=== PATIENT | male | born 1975 | race Caucasian/White ===

== ENCOUNTER 2021-08-24 01:08 | Emergency (ER) | payer BC ==
[~2021-08-24] VITALS: Ht 172.7 cm; Wt 99.8 kg
[2021-08-24 01:22] VITALS: BP 127/64
[2021-08-24] MEDS ORDERED: SILVER NITRATE APPLICATOR 1 EA BOX ONE (01:33)
--- NOTE | 2021-08-24 01:40 | NUR ---
DR. DELAROSA AT PT'S BEDSIDE FOR WOUNDCARE TO UPPER LIP Addendum: 08/24/21 at 0142 by ROXANA to apply silver nitrate
== END 2021-08-24 01:45 | disposition home or self-care (01) ==
LOC: ER 01:11
DX: S09.8XXA Other specified injuries of head, initial encounter (principal); W45.8XXA Other foreign body or object entering through skin, initial encounter; Y93.89 Activity, other specified; Y92.89 Other specified places as the place of occurrence of the external cause; Y99.8 Other external cause status

== ENCOUNTER 2021-10-07 16:26 | Emergency (ER) | payer BC ==
[~2021-10-07] VITALS: Ht 177.8 cm; Wt 99.8 kg
[2021-10-07 16:39] VITALS: BP 162/99
[2021-10-07] MEDS ORDERED: LIDOCAINE HCL/PF 1% 30 ML VIAL TP ONE (17:00)
--- NOTE | 2021-10-07 18:24 | NUR ---
Patient discharged to home in stable condition. Written and verbal after care instructions given. Patient verbalizes understanding of instruction.
== END 2021-10-07 18:24 | disposition home or self-care (01) ==
LOC: ER 16:27
DX: S01.01XA Laceration without foreign body of scalp, initial encounter (principal); V00.131A Fall from skateboard, initial encounter; Y93.51 Activity, roller skating (inline) and skateboarding; Y92.331 Roller skating rink as the place of occurrence of the external cause; Y99.8 Other external cause status
CPT/HCPCS: 99282; 12002; J3490; A6403